=== PATIENT | male | born 1950 | race Caucasian/White ===

== ENCOUNTER 2018-01-23 22:25 | Emergency (ER) | payer MEDICARE ==
--- NOTE | 2018-01-23 22:53 | ED ---
Chest Pain HPI - General Chief Complaint: Chest Pain Stated Complaint: chest pain Time Seen by Provider: 01/23/18 22:41 Source: patient, RN notes reviewed Mode of arrival: ambulatory Limitations: no limitations - History of Present Illness Initial Comments: This is a 67-year-old male with a benign history who states she's had one week of intermittent right-sided chest pain states feels tight burning on and off 5/ 10 at its worse sometimes comes on after eating. He gets better with deep breathing. He states it first occurred when he was at the gym on a treadmill. He does state he's had no recent fevers chills nausea vomiting sweats cough phlegm production he is a nonsmoker. He does work out regularly. He does state he had a normal-looking stress test about 2 years ago and a normal- appearing EKG within the last year. No other modifying factors at this time he has no symptoms at this time MD Complaint: chest pain - Related Data Home Medications Medication Instructions Recorded Confirmed Cholecalciferol [Vitamin D3] 1,000 unit PO DAILY 01/23/18 01/23/18 L.acidoph,Paracasei, B.lactis 1 cap PO DAILY 01/23/18 01/23/18 [Probiotic] Peg 400/Hypromellose/Glycerin 1 drop BOTH EYES TID 01/23/18 01/23/18 [Visine Dry Eye Relief Drop] Turmeric Root Extract [Turmeric] 500 mg PO DAILY 01/23/18 01/23/18 Allergies Allergy/AdvReac Type Severity Reaction Status Date / Time codeine AdvReac Nausea & Verified 01/23/18 23:09 Vomiting Review of Systems ROS Statement: Those systems with pertinent positive or pertinent negative responses have been documented in the HPI. ROS Other: All systems not noted in ROS Statement are negative. EKG Findings - EKG Results: EKG: interpreted by KAREL, sinus rhythm (Sinus rhythm rate 67 MT interval 204 QRS of 96 daily since QTC 44/426 minimal voltage criteria for LVH nonspecific ST and T-wave configuration) Past Medical History Past Medical History: Hypertension History of Any Multi-Drug Resistant Organisms: None Reported Additional Past Surgical History / Comment(s): broken jaw repair, Past Psychological History: No Psychological Hx Reported Smoking Status: Never smoker Past Alcohol Use History: Occasional Past Drug Use History: None Reported General Exam - General Exam Comments Initial Comments: This is a well-developed well-nourished awake alert oriented 3 male Limitations: no limitations General appearance: alert, in no apparent distress Head exam: Present: atraumatic, normocephalic, normal inspection Eye exam: Present: normal appearance, PERRL, EOMI. Absent: scleral icterus, conjunctival injection, periorbital swelling ENT exam: Present: normal exam, mucous membranes moist Neck exam: Present: normal inspection. Absent: tenderness, meningismus, lymphadenopathy Respiratory exam: Present: normal lung sounds bilaterally. Absent: respiratory distress, wheezes, rales, rhonchi, stridor Cardiovascular Exam: Present: regular rate, normal rhythm, normal heart sounds. Absent: systolic murmur, diastolic murmur, rubs, gallop, clicks GI/Abdominal exam: Present: soft, normal bowel sounds. Absent: distended, tenderness, guarding, rebound, rigid Extremities exam: Present: normal inspection, full ROM, normal capillary refill. Absent: tenderness, pedal edema, joint swelling, calf tenderness Back exam: Present: normal inspection Neurological exam: Present: alert, oriented X3, CN II-XII intact Psychiatric exam: Present: normal affect, normal mood Skin exam: Present: warm, dry, intact, normal color. Absent: rash Course Vital Signs 01/23/18 22:29 Temperature 98.4 F Pulse Rate 80 Respiratory 18 Rate Blood Pressure 179/107 O2 Sat by Pulse 97 Oximetry - Reevaluation(s) Reevaluation #1: 01/24/18 00:32 The patient does start is had no further episodes. Chest Pain MDM - MDM I did review the imaging and report no acute findings. Patient has no further symptoms since he's been here he does again relate that the symptoms seemed to start with food and didn't get better with deep breathing I did recommend he follow-up with his doctor for another stress test I also did recommend over-the- counter Prilosec the presentation does not appear to be cardiac or pulmonary in origin at this time. Disposition Clinical Impression: Atypical chest pain Disposition: HOME SELF-CARE Condition: Good Instructions: Chest Pain (ED) Additional Instructions: [id number]-[id number] Prilosec, follow-up with her doctor for a cardiac stress test. Is patient prescribed a controlled substance at d/c from ED?: No Referrals: Nonstaff,Physician [Primary Care Provider] - 1-2 days
[2018-01-23 23:50] LABS: Albumin 4.5 g/dL (3.5-5.0); Calcium 9.9 mg/dL (8.4-10.2); Magnesium 2.3 mg/dL (1.6-2.3); Total Bilirubin 0.6 mg/dL (0.2-1.3); Total Protein 7.7 g/dL (6.3-8.2)
[2018-01-23 23:55] LABS: Potassium 4.4 mmol/L (3.5-5.1)
[2018-01-24 00:06] LABS: Creatine Kinase MB 1.1 ng/mL (0.0-2.4); Troponin I 0.034 ng/mL (0.000-0.034)
--- NOTE | 2018-01-24 00:09 | XR ---
EXAMINATION TYPE: XR chest 2V DATE OF EXAM: 01/23/2018 COMPARISON: NONE HISTORY: Chest pain TECHNIQUE: Frontal and lateral views of the chest are obtained. FINDINGS: Heart and mediastinum are normal. Lungs are clear. Diaphragm is normal. Bony thorax appear s normal. IMPRESSION: Normal chest
[2018-01-24 00:11] LABS: Basophils % (A) 0 %; Eosinophils # (A) 0.2 k/uL (0-0.7); Eosinophils % (A) 3 %; HCT 46.1 % (39.0-53.0); HGB 16.8 gm/dL (13.0-17.5); Lymphocytes # (A) 2.6 k/uL (1.0-4.8); Lymphocytes % (A) 31 %; MCH 32.7 pg (25.0-35.0); MCHC 36.4 g/dL (31.0-37.0); MCV 89.8 fL (80.0-100.0); Mean Platelet Volume 6.8; Monocytes # (A) 0.8 k/uL (0-1.0); Monocytes % (A) 9 %; Neutrophils # (A) 4.4 k/uL (1.3-7.7); Neutrophils % (A) 53 %; Platelet Count 185 k/uL (150-450); RBC 5.13 m/uL (4.30-5.90); RDW 12.7 % (11.5-15.5); WBC 8.3 k/uL (3.8-10.6)
[2018-01-24 00:42] LABS: D-Dimer 0.49 mg/L FEU (<0.60); INR 1.1 (<1.2)
[2018-01-24 00:44] LABS: Partial Thromboplastin Time 20.3 sec (22.0-30.0)
[2018-01-24 00:51] VITALS: BP 160/95; PULSE 67; RESP 20; TEMP 98.5
== END 2018-01-24 00:54 | disposition home or self-care (01) ==
LOC: EC 22:25
DX: R07.89 Other chest pain (principal); Z98.890 Other specified postprocedural states; Z79.899 Other long term (current) drug therapy; Z88.5 Allergy status to narcotic agent
CPT/HCPCS: 36415; 71046; 80053; 82150; 82550; 82553; 83690; 83735; 83880; 84484; 85025; 85379; 85610; 85730; 93005; 99285